=== PATIENT | female | born 2000 | race Two or more races ===

== ENCOUNTER 2024-02-05 15:20 | Observation (INO) | payer OTHER | END 2024-02-05 18:17 | disposition home or self-care (01) | LOC: LDRP 15:20 | PROVIDERS: ADMIT Obstetrics & Gynecology; ATTEND Obstetrics & Gynecology | DX: O46.93 Antepartum hemorrhage, unspecified, third trimester (principal); Z3A.33 33 weeks gestation of pregnancy | CPT/HCPCS: 59025; 76805; 76818; 81002; 96360; 96361; G0378 ==